=== PATIENT | male | born 1970 | race Two or more races ===

== ENCOUNTER 2025-06-06 06:35 | Day surgery (SDC) | payer MEDICAID, SELFPAY ==
[2025-06-06] VITALS (9 sets, daily range): BP systolic 105–160; BP diastolic 85–126; PULSE 74–88; RESP 7–19; TEMP 36.1–36.8; O2SAT 92–96; BMI 36.1
[2025-06-06] MEDS: SODIUM CHLORIDE 0.9% 500 ML 500 ML 125 ML IV (07:25)
[2025-06-06] MEDS: fentaNYL CIT INJ 50 mCg/ML AMP 2ML (ASD USE ONLY) IVP (07:30)
[2025-06-06] MEDS: MIDAZOLAM INJ 1 MG/ML VIAL 2 ML (ASD USE ONLY) 2 MG IVP (07:30)
== END 2025-06-06 08:20 | disposition home or self-care (01) ==
PROVIDERS: PCP Family Medicine; Referring Provider Surgery; Visit Provider Surgery
PROC: 0DBE8ZX Excision of Large Intestine, Via Natural or Artificial Opening Endoscopic, Diagnostic (ICD-10-PCS; CPT 45380; principal; 2025-06-06 07:30)
DX: Z12.11 Encounter for screening for malignant neoplasm of colon (principal); D12.7 Benign neoplasm of rectosigmoid junction; K62.89 Other specified diseases of anus and rectum; K64.1 Second degree hemorrhoids; K57.30 Diverticulosis of large intestine without perforation or abscess without bleeding; I10 Essential (primary) hypertension
CPT/HCPCS: 45385; A4649; J1200; J2250; J3010; J7999